=== PATIENT | female | born 2000 | race Caucasian/White ===

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

== ENCOUNTER 2024-05-13 20:42 | Emergency (ER) | payer MEDICAID, SELFPAY ==
[~2024-05-13] VITALS: Ht 152.4 cm; Wt 64.0 kg
[2024-05-13 20:46] VITALS: TEMP 98
[2024-05-13] MEDS: IPRATROPIUM 0.5MG/ALBUTEROL 2.5MG INH SOL UD 3ML (DUONEB) NEB ONE (21:40)
[2024-05-13 22:22] VITALS: BP 117/63; O2SAT 99
[2024-05-13] MEDS ORDERED: ALBU2.5V10 NEB (22:31)
== END 2024-05-13 22:46 | disposition home or self-care (01) ==
LOC: M ED 20:42
DX: J45.901 Unspecified asthma with (acute) exacerbation (principal); R06.02 Shortness of breath; Z79.52 Long term (current) use of systemic steroids; Z79.899 Other long term (current) drug therapy; Z91.048 Other nonmedicinal substance allergy status

== ENCOUNTER 2024-06-07 00:48 | Emergency (ER) | payer MEDICAID, SELFPAY ==
[~2024-06-07] VITALS: Ht 152.4 cm; Wt 64.7 kg
[~2024-06-07 00:48] MED LIST changes: +ALBU2.5V10 NEB
[2024-06-07] MEDS ORDERED: ALBUTEROL SULFATE 2.5MG/0.5ML INH CONCENTRATE NEB SOLN As Ordered ONE (02:07)
[2024-06-07] MEDS: ALBUTEROL SULFATE 2.5MG/0.5ML INH CONCENTRATE NEB SOLN INH SCH (02:14)
[2024-06-07] MEDS: BUDESONIDE 0.5 MG/2 ML INHALATION SUSPENSION NEB ONE (03:36)
[2024-06-07] MEDS ORDERED: ALBU2.5V10 NEB (04:03)
[2024-06-07] MEDS ORDERED: ADVA115A INH (04:03)
[2024-06-07] MEDS: ALBUTEROL 90 MCG/ACT 8GM HFA INHALER INH ONE (04:16)
[2024-06-07 04:23] VITALS: BP 123/78; TEMP 98; O2SAT 98
== END 2024-06-07 04:24 | disposition home or self-care (01) ==
LOC: M ED 00:48
DX: J45.901 Unspecified asthma with (acute) exacerbation (principal); Z91.048 Other nonmedicinal substance allergy status; Z79.52 Long term (current) use of systemic steroids; Z79.899 Other long term (current) drug therapy

== ENCOUNTER → 2024-07-07 | Outpatient (REF) | payer MEDICAID | LOC: M PLALAB 10:50 | PROVIDERS: ATTEND Obstetrics & Gynecology | DX: Z36.85 Encounter for antenatal screening for Streptococcus B (principal); Z3A.36 36 weeks gestation of pregnancy ==